=== PATIENT | female | born 1945 ===

== ENCOUNTER 2024-09-27 11:00 | Inpatient (IN) | payer OTHER ==
[~2024-09-27] VITALS: Ht 162.6 cm; Wt 70.3 kg
[2024-09-27] MEDS ORDERED: LOSARTAN POTASS25 MG (12:27)
[2024-09-27] MEDS ORDERED: TOPROL XL25 M1 (12:28)
[2024-10-09] MEDS ORDERED: LIDOCAINE HCL 1%/EPINEPHRINE 20ML VIAL IJ ONE (13:45)
[2024-10-09] MEDS ORDERED: TRANEXAMIC ACID 1,000 MG in 0.9 % SODIUM CHLORIDE 100 ML IV ONE (13:45)
[2024-10-09] MEDS ORDERED: MORPHINE SULFATE 4 MG/ML VIAL IV ONE ×2 (13:45→15:10)
[2024-10-09] MEDS ORDERED: CEFAZOLIN SODIUM 1,000 MG in 0.9 % SODIUM CHLORIDE 50 ML IV ONE (13:45)
[2024-10-09] MEDS ORDERED: BUPIVACAINE HCL 30 ML VIAL IJ ONE (13:45)
[2024-10-09] MEDS ORDERED: KETOROLAC TROMETHAMINE 60 MG VIAL IM ONE (13:45)
[2024-10-09] MEDS ORDERED: VANCOMYCIN HCL 1,000 MG in 0.9 % SODIUM CHLORIDE 250 ML IR ONE (13:45)
[2024-10-09] MEDS ORDERED: OxyCODONE HCL/APAP UD (PERCOCET) PO PRN (14:30)
[2024-10-09] MEDS ORDERED: ONDANSETRON HCL 2 MG/ML VIAL IV PRN (14:30)
[2024-10-09] MEDS ORDERED: ROSUVASTATIN CAL5 MG (15:24)
[2024-10-09] MEDS ORDERED: ST. JOSEPH ASPI81 M2 (15:24)
[2024-10-09] MEDS ORDERED: AMLODIPINE BESYL5 MG (15:24)
[2024-10-09] MEDS ORDERED: FUROSEMIDE20 MG (15:25)
[2024-10-09 16:43] VITALS: BP 103/64; O2SAT 96
[2024-10-09] MEDS ORDERED: MORPHINE SULFATE 4 MG/ML CARTRIDGE IV SCH (18:00)
[2024-10-09] MEDS ORDERED: CEFAZOLIN SODIUM 1,000 MG VIAL IV SCH (18:00)
[2024-10-09] MEDS ORDERED: ORPHENADRINE CITRATE 100 MG TABLET PO SCH (21:00)
[2024-10-09] MEDS ORDERED: GABAPENTIN 100 MG CAPSULE PO SCH (21:00)
[2024-10-10 00:19] VITALS: BP 122/59; O2SAT 96
[2024-10-10 07:18] LABS: HEMATOCRIT 32.1 % (36.0-45.00); HEMOGLOBIN 11.1 g/dL (12.0-15.00); MEAN CELL VOLUME 93.3 fL (80.00-100.00); MEAN CORPUSCULAR HEMOGLOBIN 32.3 pg (27.00-32.0); MEAN CORPUSCULAR HGB CONC 34.6 g/dl (32.0-36.0); PLATELET COUNT 225 K/uL (150-450); RED BLOOD COUNT 3.44 M/uL (4.00-6.00); RED CELL DISTRIBUTION WIDTH 13.7 % (11.5-14.5)
[2024-10-10 07:51] VITALS: BP 145/65; O2SAT 99
[2024-10-10] MEDS ORDERED: RIVAROXABAN 10 MG TAB PO SCH (09:00)
[2024-10-10 12:40] LABS: CALCIUM 9.1 mg/dL (8.5-10.1); CREATININE SERUM 0.8 mg/dL (0.55-1.02); GFR 69.37; POTASSIUM 3.73 mEq/L (3.5-5.1)
[2024-10-10 16:00] VITALS: BP 115/65; O2SAT 95
[2024-10-10] MEDS ORDERED: SOD FERRIC GLUC COMPLX/SUCROSE 62.5 MG/5 ML AMPUL IV SCH (17:00)
[2024-10-10] MEDS ORDERED: IRON FUM,PS/FOLIC ACID/VITC/B3 1 CAP CAPSULE PO SCH (17:00)
[2024-10-10] MEDS ORDERED: VITAMIN B COMPLEX 1 EACH PO SCH (17:00)
[2024-10-10] MEDS ORDERED: Cyanocobalamin/Mecobalamin 1 TAB.SL SL SCH (17:00)
[2024-10-11 00:25] VITALS: BP 138/70; O2SAT 95
[2024-10-11 08:00] VITALS: BP 146/73; O2SAT 97
== END 2024-10-11 16:09 | DRG 470 ==
LOC: O/R 10-09 06:08 → SURH 10-09 07:00 → SURG 10-09 17:55
PROVIDERS: ADMIT Orthopaedic Surgery; ATTEND Orthopaedic Surgery
PROC: 0SRC0JZ Replacement of Right Knee Joint with Synthetic Substitute, Open Approach (ICD-10-PCS; principal; 2024-10-09 07:00)
DX: M17.11 Unilateral primary osteoarthritis, right knee (principal); D62 Acute posthemorrhagic anemia; M85.661 Other cyst of bone, right lower leg; I10 Essential (primary) hypertension

== ENCOUNTER 2025-10-14 09:41 | Inpatient (IN) | payer OTHER ==
[~2025-10-14] VITALS: Ht 162.6 cm; Wt 71.2 kg
[~2025-10-14 09:41] MED LIST: AMLODIPINE BESYL5 MG; FUROSEMIDE20 MG; LOSARTAN POTASS25 MG; ROSUVASTATIN CAL5 MG; ST. JOSEPH ASPI81 M2; TOPROL XL25 M1
--- NOTE | 2025-10-14 12:06 | NUR ---
PACIERTE FEMINA, SE UBICA EN PASILLO PARA SER EVALUADA POR .
[2025-10-14 12:44] LABS: BASO % 0.9 % (0.1-1.2); EOS # 0.36 (0.04-0.54); EOS % 3.6 % (0.7-7.0); LYMPH # 1.98 (1.18-3.74); LYMPH % 19.8 % (19.3-53.1); MEAN PLATELET VOLUME 9.50 fl (9.4-12.4); MONO # 0.87 (0.24-0.82); MONO % 8.7 % (4.7-12.5); NEUT # 6.69 (1.56-6.13); NEUT % 66.7 % (34.0-71.1); RED CELL DISTRIBUTION WIDTH 12.6 % (11.6-14.4)
[2025-10-14 13:23] LABS: INR 1.03
[2025-10-14 13:31] LABS: ALT/SGPT 31.0 U/L (12-78); AST/SGOT 29.0 U/L (15-37); BILIRUBIN TOTAL 0.87 mg/dL (0.3-1.2); BUN CREA RATIO 22.0 (7.0-25.0); CREATININE SERUM 0.77 mg/dL (0.55-1.02); GFR 72.31; GLOBULINA 4.3 G/DL (2.4-3.5); GLUCOSE FASTING 106.0 mg/dL (65-100); OSMOLALITY SERUM 279.0 MOSM/KG (275-295)
[2025-10-14 14:17] LABS: URINE APPEARANCE Clear; URINE BILIRRUBIN Negative (NEGATIVE); URINE BLOOD Negative; URINE COLOR Yellow; URINE GLUCOSE Negative (NEGATIVE); URINE KETONE Negative (NEGATIVE); URINE LEUKOCYTE Negative; URINE NITRATE Negative; URINE PROTEIN Trace (NEGATIVE); URINE UROBILINOGEN 1.0 E.U./dl
[2025-10-14 14:18] LABS: URINE BACTERIA 613.0 uL (0.0-1933); URINE EPITHELIAL CELLS 79.3 uL (0.0-38.8); URINE RBC 13.3 uL (0.0-20.8); URINE WBC 15.0 uL (0.0-23.2)
--- NOTE | 2025-10-14 14:34 | NUR ---
SE ORIENTA PTE SOBRE TX, REFIERE ENTENDER Y ACEPTAR. SE MARCY MUESTRAS DE LAB.
[2025-10-14 14:40] LABS: TYPE CELLS SQUAMOUS; URINE CAST 0.70 uL (0.0-1.40)
[2025-10-14] MEDS ORDERED: 0.9 % SODIUM CHLORIDE 1,000 ML IV SCH (16:45)
[2025-10-14 17:43] VITALS: BP 110/70
[2025-10-14 19:15] VITALS: BP 118/62; O2SAT 99
[2025-10-15 06:45] LABS: BASO % 1.2 % (0.1-1.2); EOS # 0.45 (0.04-0.54); EOS % 5.2 % (0.7-7.0); LYMPH # 1.72 (1.18-3.74); LYMPH % 20.0 % (19.3-53.1); MEAN PLATELET VOLUME 10.60 fl (9.4-12.4); MONO # 0.78 (0.24-0.82); MONO % 9.0 % (4.7-12.5); NEUT # 5.54 (1.56-6.13); NEUT % 64.3 % (34.0-71.1); RED CELL DISTRIBUTION WIDTH 12.3 % (11.6-14.4)
[2025-10-15 07:12] LABS: INR 1.02
[2025-10-15 07:51] LABS: BUN CREA RATIO 18.0 (7.0-25.0); CREATININE SERUM 0.66 mg/dL (0.55-1.02); GFR 86.39; GLUCOSE FASTING 100.0 mg/dL (65-100); OSMOLALITY SERUM 285.0 MOSM/KG (275-295)
[2025-10-15] MEDS ORDERED: 0.9 % SODIUM CHLORIDE 1,000 ML IV SCH (08:00)
[2025-10-15] MEDS ORDERED: PROMETHAZINE HCL 50 MG/ML AMPUL IM PRN (08:00)
[2025-10-15] MEDS ORDERED: CEFAZOLIN SODIUM 1,000 MG VIAL IV SCH (08:00)
[2025-10-15 08:34] VITALS: BP 131/70; O2SAT 97
[2025-10-15] MEDS ORDERED: ROSUVASTATIN CALCIUM 20 MG TABLET PO SCH (09:00)
[2025-10-15] MEDS ORDERED: LOSARTAN POTASSIUM 25 MG TABLET PO SCH (09:00)
[2025-10-15] MEDS ORDERED: METOPROLOL SUCCINATE 25 MG TAB.SR.24H PO SCH (09:00)
[2025-10-15] MEDS ORDERED: AMLODIPINE BESYLATE 10 MG TABLET PO SCH (09:00)
[2025-10-15] MEDS ORDERED: TRANEXAMIC ACID 100MG/1ML (1000MG) AMPUL ONE (17:31)
[2025-10-15] MEDS ORDERED: OxyCODONE HCL 5 MG TABLET (ROXICODONE) PO PRN (19:00)
[2025-10-15] MEDS ORDERED: MORPHINE SULFATE 4 MG/ML CARTRIDGE IV PRN (19:00)
[2025-10-15] MEDS ORDERED: SODIUM CHLORIDE 0.45 % 1,000 ML IV SCH (19:00)
[2025-10-15] MEDS ORDERED: ONDANSETRON HCL 2 MG/ML VIAL IV PRN (19:00)
[2025-10-15 22:31] VITALS: BP 134/67; O2SAT 94
[2025-10-15 23:24] LABS: URINE APPEARANCE Clear; URINE BILIRRUBIN Negative (NEGATIVE); URINE BLOOD Small; URINE COLOR Dark Yellow; URINE GLUCOSE Negative (NEGATIVE); URINE LEUKOCYTE Negative; URINE NITRATE Negative; URINE PROTEIN 30 (NEGATIVE); URINE UROBILINOGEN 1.0 E.U./dl
[2025-10-15 23:29] LABS: URINE BACTERIA 19.4 uL (0.0-1933); URINE EPITHELIAL CELLS 12.1 uL (0.0-38.8); URINE RBC 80.7 uL (0.0-20.8); URINE WBC 10.5 uL (0.0-23.2)
[2025-10-15 23:37] LABS: URINE CAST 0.00 uL (0.0-1.40); URINE KETONE 40 (NEGATIVE)
[2025-10-16] MEDS ORDERED: ACETAMINOPHEN 500 MG GEL..CAP PO SCH
[2025-10-16 00:59] VITALS: BP 122/63; O2SAT 100
[2025-10-16] MEDS ORDERED: CEFAZOLIN SODIUM 1,000 MG VIAL IV SCH (01:00)
[2025-10-16] MEDS ORDERED: GABAPENTIN 300 MG CAPSULE PO SCH (01:00)
[2025-10-16 06:23] LABS: BASO % 0.7 % (0.1-1.2); EOS # 0.32 (0.04-0.54); EOS % 3.5 % (0.7-7.0); LYMPH # 2.07 (1.18-3.74); LYMPH % 22.8 % (19.3-53.1); MEAN PLATELET VOLUME 10.60 fl (9.4-12.4); MONO # 1.02 (0.24-0.82); MONO % 11.3 % (4.7-12.5); NEUT # 5.57 (1.56-6.13); NEUT % 61.5 % (34.0-71.1); RED CELL DISTRIBUTION WIDTH 12.1 % (11.6-14.4)
[2025-10-16] MEDS ORDERED: PERCOCET 5-3251 EACH PO (08:12)
[2025-10-16] MEDS ORDERED: CEFADROXIL500 MG PO (08:12)
[2025-10-16] MEDS ORDERED: ELIQUIS2.5 MG PO (08:12)
[2025-10-16] MEDS ORDERED: SENNOSIDES 1 TAB TABLET PO SCH (09:00)
[2025-10-16] MEDS ORDERED: APIXABAN 2.5 MG TABLET PO SCH (09:00)
[2025-10-16 14:37] LABS: COVID-19 AG NEGATIVE (NEGATIVE)
[2025-10-16 16:00] VITALS: BP 119/61; O2SAT 96
[2025-10-16] MEDS ORDERED: SOD FERRIC GLUC COMPLX/SUCROSE 62.5 MG/5 ML AMPUL IV SCH (17:00)
[2025-10-16] MEDS ORDERED: Cyanocobalamin/Mecobalamin 1 TAB.SL SL SCH (17:00)
[2025-10-17 01:06] VITALS: BP 106/57; O2SAT 96
[2025-10-17 07:44] LABS: BASO % 0.5 % (0.1-1.2); EOS # 0.34 (0.04-0.54); EOS % 3.2 % (0.7-7.0); LYMPH # 1.78 (1.18-3.74); LYMPH % 16.7 % (19.3-53.1); MEAN PLATELET VOLUME 10.80 fl (9.4-12.4); MONO # 1.19 (0.24-0.82); MONO % 11.2 % (4.7-12.5); NEUT # 7.25 (1.56-6.13); NEUT % 68.1 % (34.0-71.1); RED CELL DISTRIBUTION WIDTH 12.2 % (11.6-14.4)
[2025-10-17 07:56] VITALS: BP 136/71; O2SAT 95
[2025-10-17] MEDS ORDERED: IRON FUM,PS/FOLIC ACID/VITC/B3 1 CAP CAPSULE PO SCH ×2 (09:00)
[2025-10-17 17:13] VITALS: BP 144/78; O2SAT 98
== END 2025-10-17 17:19 | DRG 522 ==
LOC: ER 09:41 → SURG 16:51 → SURH 10-16 16:14
PROVIDERS: General Practice; Orthopaedic Surgery; ADMIT Internal Medicine; ATTEND Internal Medicine
PROC: 0MBM0ZZ Excision of Left Hip Bursa and Ligament, Open Approach (ICD-10-PCS; 2025-10-15)
PROC: 0QU70JZ Supplement Left Upper Femur with Synthetic Substitute, Open Approach (ICD-10-PCS; 2025-10-15)
PROC: 0QU70KZ Supplement Left Upper Femur with Nonautologous Tissue Substitute, Open Approach (ICD-10-PCS; 2025-10-15)
PROC: 0SRS0JZ Replacement of Left Hip Joint, Femoral Surface with Synthetic Substitute, Open Approach (ICD-10-PCS; principal; 2025-10-15 18:00)
DX: S72.032A Displaced midcervical fracture of left femur, initial encounter for closed fracture (principal); M80.052A Age-related osteoporosis with current pathological fracture, left femur, initial encounter for fracture; M16.12 Unilateral primary osteoarthritis, left hip; Z96.652 Presence of left artificial knee joint; Z96.641 Presence of right artificial hip joint; Z53.1 Procedure and treatment not carried out because of patient's decision for reasons of belief and group pressure